=== PATIENT | male | born 1990 | race African-American/Black ===

== ENCOUNTER 2018-12-12 12:25 | Emergency (ER) | payer SELFPAY ==
[~2018-12-12] VITALS: Ht 170.2 cm; Wt 75.0 kg
[2018-12-12 14:46] VITALS: BP 145/77
== END 2018-12-12 16:16 | disposition home or self-care (01) ==
LOC: ER 12:25
DX: R51 Headache (principal); M26.602 Left temporomandibular joint disorder, unspecified; F17.200 Nicotine dependence, unspecified, uncomplicated; F12.10 Cannabis abuse, uncomplicated; Z98.890 Other specified postprocedural states
CPT/HCPCS: 70110; 99283

== ENCOUNTER 2019-09-10 23:10 | Emergency (ER) | payer MEDICAID ==
[~2019-09-10] VITALS: Ht 175.3 cm; Wt 80.3 kg
[2019-09-11] MEDS ORDERED: AMOXICILLIN/POTASSIUM CLAVULANATE 875/125MG TAB PO ONE (01:00)
[2019-09-11] MEDS ORDERED: TETANUS, DIPHTHERIA, PERTUSSIS VAC/PF 0.5ML (>7YR OLD) IM ONE (01:00)
[2019-09-11 02:21] VITALS: BP 112/78
== END 2019-09-11 02:22 | disposition home or self-care (01) ==
LOC: ER 23:10
DX: L03.113 Cellulitis of right upper limb (principal); R60.9 Edema, unspecified; F12.10 Cannabis abuse, uncomplicated; Z98.890 Other specified postprocedural states
CPT/HCPCS: 73130; 90471; 90715; 99283

== ENCOUNTER 2019-11-27 14:38 | Emergency (ER) | payer SELFPAY ==
[~2019-11-27] VITALS: Ht 175.3 cm; Wt 77.2 kg
[2019-11-27 15:23] VITALS: BP 106/76
[2019-11-27 15:59] LABS: CLARITY URINE CLOUDY (CLEAR); COLOR URINE YELLOW (YELLOW); KETONES URINE NEGATIVE (NEGATIVE); LEUKOCYTE ESTERASE URINE 3+ (NEGATIVE); NITRITE URINE NEGATIVE (NEGATIVE); OCCULT BLOOD URINE 1+ (NEGATIVE); PH URINE 6.5 (4.5-8.0); PROTEIN URINE NEGATIVE (NEGATIVE); SPECIFIC GRAVITY URINE 1.015 (1.005-1.030)
[2019-11-27] MEDS ORDERED: CEFTRIAXONE SODIUM 250 MG/VIAL IM ONE (16:00)
[2019-11-27] MEDS ORDERED: AZITHROMYCIN 500 MG TABLET PO ONE (16:00)
== END 2019-11-27 16:10 | disposition home or self-care (01) ==
LOC: ER 15:21
DX: R30.0 Dysuria (principal); F12.10 Cannabis abuse, uncomplicated; Z98.890 Other specified postprocedural states
CPT/HCPCS: 81003; 87086; 87491; 87591; 96372; 99283; J0696

== ENCOUNTER 2020-05-07 12:26 | Emergency (ER) | payer MEDICAID ==
[~2020-05-07] VITALS: Ht 175.3 cm; Wt 79.5 kg
[2020-05-07 12:28] VITALS: BP 120/86
== END 2020-05-07 14:22 | disposition left against medical advice (07) ==
LOC: ER 12:44
DX: Z53.21 Procedure and treatment not carried out due to patient leaving prior to being seen by health care provider (principal); Z20.822 Contact with and (suspected) exposure to COVID-19

== ENCOUNTER 2022-11-27 21:15 | Emergency (ER) | payer MEDICAID ==
[~2022-11-27] VITALS: Ht 175.3 cm; Wt 73.8 kg
[2022-11-27 21:41] VITALS: BP 154/93; PULSE 98; RESP 18; TEMP 98.7; O2SAT 100
[2022-11-27] MEDS ORDERED: CEFTRIAXONE SODIUM 500 MG/VIAL IM ONE (23:15)
[2022-11-27] MEDS ORDERED: LIDOCAINE HCL 1% 20ML VIAL (Pyxis) INJ INFIL ONE (23:15)
[2022-11-27] MEDS ORDERED: DOXY100C5 MT (23:40)
[2022-12-01 09:07] LABS: NEISSERIA GONORRHOEAE NAA Negative (Negative)
[2022-12-01 15:07] LABS: CHLAMYDIA TRACHOMATIS NAA Positive (Negative)
== END 2022-11-27 23:40 | disposition home or self-care (01) ==
LOC: ER 21:15
DX: N34.2 Other urethritis (principal)
CPT/HCPCS: 99283; 87491; 87591; 96372; J0696